=== PATIENT | male | born 1940 | race Caucasian/White ===

== ENCOUNTER 2024-02-11 05:56 | Inpatient (IN) | payer OTHER, SELFPAY ==
[2024-02-11] VITALS (15 sets, daily range): BP systolic 89–137; BP diastolic 36–75; BMI 21.1; BMI 20.6
--- NOTE | 2024-02-11 04:05 | ED.GENMED ---
History of Present Illness
General
Chief Complaint: Fever
Source: patient, ambulance crew and care home records
Exam Limitations: none
Time Seen by Provider: 02/11/24 03:58
Nursing documentation reviewed up to this point in time: agreed with
History of Present Illness
History of Present Illness:
Pleasant 83-year-old male that presents with fever, 'lethargy ', and hypertension that has been present for the last day. Patient has an indwelling Mansfield catheter. Patient has a history of UTI. History is limited due to patient's condition.
Vital signs are stable. Patient not hypoxic
Nursing note reviewed. I agree with nursing documentation up to this point in time.
Home Meds and allergies reviewed.
NUMBER AND COMPLEXITY OF PROBLEMS ADDRESSED AT THE ENCOUNTER
� Chronic conditions affecting care: CKD stage IIIa, nodular prostate with frequent UTIs, Parkinson's disease, hydronephrosis, orthostatic hypotension, type 2 diabetes, weakness
� Acute Exacerbation and/or Progression of Chronic Illness:
� Differential Diagnosis includes: Urosepsis, pyelonephritis, sepsis, septic shock
AMOUNT AND/OR COMPLEXITY OF DATA TO BE REVIEWED AND ANALYZED
I performed an independent evaluation of the following and my interpretation is:
EKG:
Pulse Ox: Not Hypoxic
Cd Reactor Operator Head: Sinus Rhythm
CT:
X-rays:
Ultrasound:
Laboratory Studies:
Other:
Review of other/old records: No previous hospital records available. Reviewed
Rehab facility records
Clinical information was obtained by an independent historian:
Prescriptions/Medications Considered but not given:
Further testing considered but not performed:
RISK OF COMPLICATIONS AND/OR MORBIDITY OR MORTALITY OF PATIENT MANAGEMENT
Social determinants of health affecting care: Good Social Support
Discussion with other providers: Discussed with hospitalist for admission to the hospital
Escalation of care including admission/observation vs risk of discharge considered: After being observed in the emergency department, patient is stable for discharge.
CRITICAL CARE NOTE:
Critical care statement: A total of 30 minutes of critical care time was provided for this patient. This time is separate from time utilized to perform the aforementioned documented procedures. Aggregate critical care time includes only time
during which I was engaged in work directly related to the patient's care, as described above, whether at the bedside or elsewhere in the Emergency Department.
Total Time (exclusive of procedures):
Update:
Review of Systems
Review of Systems
Allergies reviewed?: Yes
All Other Systems: ROS reviewed and negative except as documented in HPI and ROS
Constitutional: Reports fever and fatigue
EENT: Reports no symptoms
Respiratory: Reports no symptoms
Cardiac: Reports no symptoms
ABD/GI: Reports no symptoms
: Reports incontinence and dark urine
Musculoskeletal: Reports no symptoms
Skin: Reports no symptoms
Neurological: Reports no symptoms
Endocrine: Reports no symptoms
Hematologic/Lymphatic: Reports no symptoms
Psychiatric: Reports no symptoms
Phy Exam
General Physical Exam
General Presentation: well appearing and mild distress
General age: appears older than age
General Skin: warm and dry
General Habitus: elderly and frail
General Mental: confused
General Hydration: appears well hydrated
Gastrointestinal Exam
Gastrointestinal Exam: normal bowel sounds, non tender and soft
Neurological Exam
Neurological Exam: confused
Musculoskeletal Exam
Musculoskeletal Exam: full ROM
Skin Exam
Skin Exam: normal color and warm/dry
Psychiatric Exam
Psychiatric Exam: labile
Sepsis
Sepsis Screening
Sepsis Assessment: Severe Sepsis
Sepsis Screening: Hypotension
Sepsis Screen
Sepsis Screen: Severe Sepsis
Date: 02/11/24
Time: 05:42
Course
Orders/Labs/Results
Orders:
Orders
02/11/24 04:03
Electrocardiogram (*1) Urgent
Reason for Study: Other
Other Reason for Exam: sepsis
Cardiac Monitoring- Treatment ONCE
EKG- Treatment ONCE
0.9% Sodium Chloride 1000 ml [Nss] 1,000 ml IV NOW STA
Cefepime HCl [Maxipime] 2,000 mg IV NOW STA
02/11/24 04:23
Complete Blood Count/With Diff Urgent
Comprehensive Metabolic Panel Urgent
Lactic Acid Q4H
Comment: CANCEL 2nd LACTIC ACID IF 1st LACTIC ACID IS LESS THAN 2
PTT Urgent
Procalcitonin Urgent
PCT Algorithmm Indication: Sepsis
Prothrombin Time Urgent
Troponin I Urgent
02/11/24 04:24
Blood Culture Urgent
COOPER Source: Blood/Venous
Specimen Description:
Date Specimen was Collected: 02/11/24
Time Specimen was Collected: 04:23
02/11/24 04:32
Urinalysis Reflex To Culture Urgent
Date Specimen was Collected: 02/11/24
Time Specimen was Collected: 04:24
Urine Microscopic Reflex Cult Urgent
Urine Culture Urgent
COOPER Source: U
Specimen Description:
Date Specimen was Collected: 02/11/24
Time Specimen was Collected: 04:24
02/11/24 04:55
Admit/Transfer Patient As Directed
Co-Sign Provider:
Level of Care: Inpatient admission
Assign to:: IMU- Intermediate Care
Physician / Group: Hospitalist
Diagnosis: Sepsis
Reason for Hospitalization: Sepsis
Expected length of stay greater than two midnights?: Yes
ELOS- Estimated Length of Stay in days: 2
I certify the patient meets the requirements for IP care: Yes
PRN Pain Medication Management As Directed
May give lesser potent ordered pain med per pt: Yes
preference::
Protocol:: Medication orders for pain may be administered in a
manner that supports deferring to patient preference
when the pt is:
- Requesting an ordered lesser potent pain medication.
Least to most potent pain medications are defined
as: acetaminophen < NSAID < tramadol < opioids
(morphine, oxycodone, hydromorphone).
- Requesting a lesser dose of the same medication IF
ORDERED.
- Requesting a less intrusive route of administration
if both routes are prescribed by the provider (PO <
IV).
02/11/24 05:03
Code Status As Directed
Resuscitation Status: Full Code
02/11/24 05:15
Gentamicin Sulfate [Gentamicin] 200 mg 0.9% Sodium Chloride [Nss] 50 ml IV ONCE
Abnormal Lab Results
02/11/24 02/11/24
04:23 04:32
WBC 14.6 H 10^3/uL
(4.8-10.8)
RBC 3.81 L 10^6/uL
(4.70-6.10)
Hgb 10.7 L g/dL
(13.0-18.0)
Hct 33.5 L %
(39.0-52.0)
MCHC 31.9 L g/dL
(33.0-37.0)
Abs Immat Gran (auto) 0.2 H 10^3/uL
(0-0.05)
Absolute Neuts (auto) 12.0 H 10^3/uL
(1.4-6.5)
Absolute Monos (auto) 0.9 H 10^3/uL
(0.1-0.6)
Immature Gran % 1.1 H %
(0-0.5)
Neutrophils % 82.6 H %
(42.2-75.2)
Lymphocytes % 9.6 L %
(20.5-51.1)
BUN 34 H mg/dl
(9-20)
Creatinine 1.6 H mg/dL
(0.7-1.3)
Glucose 230 H mg/dl
(70-99)
AST 16 L U/L
(17-59)
Total Protein 5.8 L g/dl
(6.3-8.2)
Albumin 3.1 L g/dl
(3.5-5.0)
Procalcitonin 1.99 H ng/ml
(0.0-0.25)
Urine Ketones 1+ A
(Negative)
Ur Occult Blood Reflex 3+ A
(Negative)
Leukocyte Esterase Rfl 2+ A
(Negative)
Urine Glucose 1+ A
(Negative)
Urine Albumin (Reflex) 2+ A
(Neg - Trace)
02/11/24 04:23
02/11/24 04:23
Vital Signs
Initial and Last Documented VS:
Initial Vital Signs
Pulse Resp BP Pulse Ox
75 25 92/40 96
02/11/24 04:00 02/11/24 04:00 02/11/24 04:00 02/11/24 04:00
Last Documented Vital Signs
Temp Pulse Resp BP Pulse Ox
100 F 66 21 125/45 98
02/11/24 04:13 02/11/24 05:00 02/11/24 05:00 02/11/24 05:00 02/11/24 05:00
*Critical Care Note
Total Time (30-74mins, 75-104mins- exclusive of procedures): Not Applicable (Critical care statement: A total of 30 minutes of critical care time was provided for this patient. This time is separate from time utilized to perform the aforementioned
documented procedures. Aggregate critical care time includes only time during which I was engaged in work directl)
ED Attending Note
-
Portions of this chart may have been created with voice recognition software.� Occasional wrong word or��sound alike� substitutions may have occurred due to the inherent limitations of voice recognition software.
Discharge Plan
Departure
Patient Disposition: Admit
Date of Disposition: 02/11/24
Time of Disposition: 05:41
Admit to: Telemetry
Presentation/result/management discussed w/ accepting MD/DO: Hospitalist
Patient with high blood pressure during this ER visit?: Yes
Discharge Problem:
urosepsis
Instructions: Blood in the Urine (Hematuria), Adult (DC)
Referrals:
Farhan Yang DO [Family Provider] -
Interventions
Interventions:
*Risk Screen - Suicide Last Done: 02/11/24 04:37
*General Assessment Last Done: 02/11/24 04:37
*Neglect/Abuse Screening Last Done: 02/11/24 04:37
ED- Fall Risk Assessment Last Done: 02/11/24 04:37
*ED COVID-19 Vaccine History Last Done: 02/11/24 04:37
ED-Male Genitourinary Assessment Last Done: 02/11/24 04:37
ED- Neurological Assessment Last Done: 02/11/24 04:37
ED-Skin Assessment Last Done: 02/11/24 05:38
Discharge Date and Time
Print Language: LUXEMBOURG[place]
[2024-02-11] MEDS: NSS 1000 ML IV (04:26)
[2024-02-11 04:38] LABS: % Basophils 0.3 % (0-2); % Eosinophils 0.1 % (0-6); % Immature Granulocytes 1.1 % (0-0.5); % Lymphocytes 9.6 % (20.5-51.1); % Monocytes 6.3 % (1.7-9.3); % Neutrophils 82.6 % (42.2-75.2); Absolute Basophils 0.1 10^3/uL (0-0.2); Absolute Immature Granulocytes 0.2 10^3/uL (0-0.05); Absolute Lymphocytes 1.4 10^3/uL (1.2-3.4); Absolute Monocytes 0.9 10^3/uL (0.1-0.6); Hematocrit 33.5 % (39.0-52.0); Hemoglobin 10.7 g/dL (13.0-18.0); Mean Corp Hgb Conc. 31.9 g/dL (33.0-37.0); Mean Corpuscular Hgb 28.1 pg (27.0-31.0); Mean Corpuscular Volume 87.9 fL (80.0-94.0); Mean Platelet Volume 9.4 fL (7.4-10.4); Nucleated Red Blood Cells % 0 % (-); Platelet Count 324 10^3/uL (130-400); Red Blood Cell Count 3.81 10^6/uL (4.70-6.10); Red Cell Dist. Width 13.9 % (11.5-14.5); White Blood Cell Count 14.6 10^3/uL (4.8-10.8)
[2024-02-11 04:45] LABS: ALT (SGPT) < 10 U/L (0-50); AST (SGOT) 16 U/L (17-59); Albumin 3.1 g/dl (3.5-5.0); Alkaline Phosphatase 83 U/L (38-126); Blood Urea Nitrogen 34 mg/dl (9-20); Calcium 8.9 mg/dl (8.4-10.2); Carbon Dioxide 29 mmol/L (22-30); Chloride 102 mmol/L (98-107); Estimated Creatinine Clearance 31 ml/min; Glucose 230 mg/dl (70-99); Potassium 4.3 mmol/L (3.5-5.1); Sodium 141 mmol/L (135-145); Total Bilirubin 0.6 mg/dl (0.2-1.3); Total Protein 5.8 g/dl (6.3-8.2); eGFR 42.22
[2024-02-11 04:46] LABS: Lactic Acid 1.1 mmol/L (0.7-2.0)
[2024-02-11 04:48] LABS: APTT 33.2 Sec (23.4-35.0); INR 1.09; PT 13.9 Sec (11.4-14.6)
[2024-02-11] MEDS: MAXIPIME 2000 MG IV (04:49)
[2024-02-11 04:56] LABS: Urine Albumin 2+ (Neg - Trace); Urine Bilirubin Negative (Negative); Urine Character Very Cloudy (Clear); Urine Color Yellow; Urine Glucose 1+ (Negative); Urine Ketone 1+ (Negative); Urine Leukocyte 2+ (Negative); Urine Nitrite Negative (Negative); Urine Occult Blood 3+ (Negative); Urine Urobilinogen Negative (Neg - 1+)
[2024-02-11 04:59] LABS: Troponin I < 0.012 ng/ml
--- NOTE | 2024-02-11 05:18 | HPS.HSE ---
Family Physician
-
Family Physician: Farhan Yang DO
Chief Complaint
-
Fever and hypotension
History of Present Illness
This is an 83-year-old with past medical history significant for Parkinson's disease, diabetes not on insulin, orthostatic hypotension, urinary retention status post TURP, chronic indwelling urinary catheter who presents to the emergency department
from [facility] after being found to be hypotensive.
Patient arrived at [facility] on February 09. He is not minimally responsive at this time and unable to provide history. History obtained from the nursing staff at the rehab. The patient had been recently admitted to a different
hospital on January 23. He had fatigue lethargy and was found to have a complicated urinary tract infection at that time due to Mansfield. Mansfield exchanged. He was treated initially with cefepime and ultimately narrowed to cefuroxime. He also had
Ericka glabrata and received 7 days of micafungin. The report indicated that there was gram-negative rods on culture but no speciation was further provided. Patient seen by infectious disease at the outside hospital. On February 08 it was stated
that he was declining and was not stable for discharge. However he was discharged ultimately on February 09. Upon arrival at the correction being evaluated he was found to be hypotensive with a high fever. He was lethargic. Received 1 dose of
Tylenol at 2 AM. EMS gave 1 L of normal saline en route.
On arrival in the emergency department here his initial blood pressure was 92/40, temperature 100, pulse 66 and he was satting 80% on room air. He had pus coming from his indwelling urinary catheter. UA was positive with leukocyte esterase but
negative for nitrites at this time. Rest of UA is pending. He had leukocytosis to 14,000, hemoglobin 10.7 platelet 324. Will BUN was 34 and creatinine was 1.6 with prior baseline from 1.2 on admission to the outside hospital. Lactic acid was
negative. LFTs were within normal limits. He received 2 g of cefepime and dose of gentamicin in the ED
Medical History
Past Medical History
Past Medical History: Reports NIDDM and Other
Additional Past Medical History:
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
Orthostatic hypotension
Parkinson disease
CKD
Past Surgical History: Reports Urological (TURP, TURBT)
Social History
Unable to obtain full social history at this time due to: Acuity
Family History
Family History: Not pertinent
Allergies / Home Medications
Allergies reflects when Allergies were last updated in LOAG.
Home Medications with original date entered in LOAG
Allergy/Medication List:
Allergies
Allergy/AdvReac Type Severity Reaction Status Date / Time
No Known Allergies Allergy Unverified 02/11/24 04:25
Aspirin 81 mg tablet, 81mg p.o. daily
Carbidopa�levodopa 25-250 mg tablet, 1 tablet p.o. 4 times daily
Fludrocortisone sed rate oral tablet 0.1 mg, 0.1 mg p.o. daily
Januvia 100 mg tablet, 100 mg p.o. daily
Midodrine 10 mg tablet, 10 mg p.o. 3 times daily
Repaglinide 2 mg tablet, 2 mg p.o. twice daily
Simvastatin 40 mg tablet, 40 mg p.o. at bedtime
Review of Systems
-
Unable to obtain full review of systems at this time due to: Acuity
Physical Exam
Vital Signs
Vital Signs
Temp Pulse Resp BP Pulse Ox
100 F 66 21 125/45 98
02/11/24 04:13 02/11/24 05:00 02/11/24 05:00 02/11/24 05:00 02/11/24 05:00
Physical Exam
General: No Apparent Distress and Appears Chronically Ill
HEENT: NormoCephalic, Anicteric, Atraumatic, [place] Conjunctivae and Neck Nontender
Respiratory: Clear
Cardiac: S1/S2 and Regular Rhythm
Breast: Deferred by me
GI: Soft, Non Tender, Non Distended, Normal Bowel Sounds and No Hepatosplenomegaly
Rectal: Deferred by Provider
Genito-urinary: Turbid Urine and Mansfield
Musculoskeletal: No Clubbing, No Cyanosis and No Edema
Skin: Warm
Neuro: Awake (Somnolent but arousable, opens eyes to simple commands. Cannot follow simple commands at this time. Moving all extremities spontaneously. ) and DTR's Intact & Symmetrical
Hematologic/Lymphatic: No Lymphadenopathy
Laboratory Results
-
02/11/24 04:23
02/11/24 04:23
Laboratory Results
PT 13.9 Sec (11.4-14.6) 02/11/24 04:23
INR 1.09 02/11/24 04:23
APTT 33.2 Sec (23.4-35.0) 02/11/24 04:23
Lactic Acid Cancelled 02/11/24 08:15
Total Bilirubin 0.6 mg/dl (0.2-1.3) 02/11/24 04:23
AST 16 U/L (17-59) L 02/11/24 04:23
ALT < 10 U/L (0-50) 02/11/24 04:23
Alkaline Phosphatase 83 U/L (38-126) 02/11/24 04:23
Troponin I < 0.012 ng/ml 02/11/24 04:23
Data Reviewed
-
Lab Data: Labs Reviewed by me
Old Records: Reviewed
Impression/Plan
-
IMPRESSION:
83-year-old with history of chronic urinary retention status post indwelling cath, Parkinson's disease, orthostatic hypotension, CKD who presents to the emergency department from [facility] just after being discharged from a 18 day hospitalization
at [facility] for urinary tract infection where he was treated for 7 days with micafungin for urinary Ericka glabrata as well as treated with cefepime and ultimately downgraded to cefuroxime for gram-negative brenda infection. On
arrival here He was febrile, hypotensive, leukocytosis and has pyuria on UA. Saturating at 98% on room air without any evidence of increased work of breathing. Abdominal labs are within normal limits and the abdominal exam was benign. No other
infectious source evident. Patient is now on his third hospitalization for recurrent UTI and each hospitalization spending less than 2 days out of the hospital between each. He has declined significantly over the last 4 weeks.
PLAN:
1. Sepsis -complicated urinary tract infection with sepsis presumed from urinary source. Recently treated for Ericka glabrata and resistant gram-negative brenda infection of uncertain speciation. Status post 2 L with repeat blood pressure of 120
systolic. Lactic acid is negative.
- admit to imu
- continue iv fluids at 100 ml/hr, h/o orthostatic hypotension
- blood and urine cultures sent, procal pending
- continuing cefepime for now
- ID consultation
- requested medical records from [facility]
2. Urinary retention
- chronic indwelling catheter, exchanged in ED
3. DM II
- sitagliptin
- insulin sliding scale for now
4. Orthostasis
- fludrocortisone 0.1 daily, midodrine 10 tid.
5. Parkinsons
- continue sinamet 25-250 qid
6. Diet - Soft mechanical, bite size, thin liquids
DVT PPx - heparin sq q8
Code status - DNR after long discussion with family
[2024-02-11 05:32] LABS: Procalcitonin 1.99 ng/ml (0.0-0.25)
[2024-02-11] MEDS: GENTAMICIN 55 MG IV (05:40)
[2024-02-11] MEDS: LR 1000 IV ×2 (07:07→17:26)
[2024-02-11 08:06] LABS: Urine Amorphous Seen; Urine Squamous Cell 0-2 /LPF (Few)
[2024-02-11 08:07] LABS: Urine Red Blood Cell 16-20 /HPF (0-2); Urine White Cell >100 /HPF (0-5)
[2024-02-11 08:08] LABS: Urine Bacteria Few (Negative)
[2024-02-11] MEDS: ZINC OXIDE OINTMENT 1 APPLIC TOPICAL ×2 (08:57→21:48)
[2024-02-11] MEDS: JANUVIA 100 MG PO (08:59)
[2024-02-11] MEDS: FLORINEF 0.1 MG PO (08:59)
[2024-02-11] MEDS: SINEMET 25-250 1 TABLET PO ×3 (08:59→22:00)
[2024-02-11] MEDS: ProAmatine 10 MG PO (08:59)
[2024-02-11] MEDS: ASPIR LOW (ENTERIC COATED) 81 MG PO (09:00)
[2024-02-11] MEDS: HEPARIN 5000 UNITS SC ×2 (09:00→21:48)
[2024-02-11] MEDS: SENOKOT-S 1 TABLET PO ×2 (09:00→21:48)
[2024-02-11] MEDS: COLACE 100 MG PO ×2 (09:00→21:48)
[2024-02-11 10:46] LABS: Glucose - Point of Care 196 mg/dl (70-99)
--- NOTE | 2024-02-11 11:21 | CON.ID ---
Consultation
-
Date/Time Consultation Requested: 02/11/2024 0659
Date/Time Consultation Performed: 02/11/2024 1050
Requesting Provider: Dr. Hayden
Performing Provider: Dr. Minor
Reason for Consultation: Suspected complicated urinary tract infection, Fever
Chief Complaint / Past History
History of Present Illness
Jose Avalos is a 83-year-old male being evaluated in regards to suspected complicated urinary tract infection. History is obtained from chart review, and patient interview, although patient was found to be unable to provide significant
history for me.
According to reviewed records the patient arrives at [facility] early this a.m. from [facility], having recently been admitted to that facility from a [place] facility. According to reviewed notes the patient was admitted to
this [place] facility on 01/23 and ultimately was diagnosed with a urinary tract infection. Patient does have a history of chronic Mansfield catheter placement secondary to urinary retention. While at the [place] facility, it appears that he also
had funguria with Ericka glabrata, and underwent treatment with micafungin.
Earlier this morning, the patient evidently had a fever and did not appear well and EMS was called. Workup in the ER here revealed a leukocytosis, along with significant pyuria. He has been started on empiric antibiotics, and Infectious Diseases
is asked to comment upon further antimicrobial therapy.
At the present time, he denies any chest pain. He denies any shortness of breath, cough or congestion. He denies any abdominal pain, nausea or vomiting. He denies any urinary pain, or flank pain.
Past History
Additional Past Medical History:
Parkinson's
DM
CKD
Orthostatic hypotension
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
Additional Past Surgical History:
TURP
Allergy History:
No Known Allergies Allergy (Unverified 02/11/24 04:25)
Medications Reviewed: Yes
Current Antibiotics:
Cefepime 1 g IV every 12 hours
(Gentamicin received in ER)
Social History
Tobacco: Non-Smoker
Alcohol: None
Drug: None
Living: [facility]
Family History
Family History: Not Pertinent
Review of Systems
Vital Signs
Temp Pulse Resp BP Pulse Ox
100 F 55 19 126/52 97
02/11/24 04:13 02/11/24 10:30 02/11/24 10:30 02/11/24 10:00 02/11/24 10:30
Physical Exam
Physical Exam
Constitutional: No Acute Distress, Comfortable and Non-toxic
Head: Normocephalic
Eyes: No Conjunctival Hemorrhage and Sclera Anicteric
Oral: No Thrush and No Ulcers
Cardiovascular: Regular Rate and S1/S2; Negative S3/S4 or Murmur
Pulmonary: Clear; Negative Wheezes, Rales or Rhonchi
Gastrointestinal: Soft, Non Tender, Non Distended, Normal Bowel Sounds, No Rebound and No Guarding
Genito-Urinary: Mansfield and Clear Urine; Negative Turbid Urine or Hematuria
Extremities: Edema (Trace); Negative Cyanosis or Erythema
Neurological: Awake and Alert
Psychological: Calm
.
Lab / Diagnostic Study Results
02/11/24 04:23
02/11/24 04:23
Abs Immat Gran (auto) 0.2 10^3/uL (0-0.05) H 02/11/24 04:23
Absolute Neuts (auto) 12.0 10^3/uL (1.4-6.5) H 02/11/24 04:23
Absolute Lymphs (auto) 1.4 10^3/uL (1.2-3.4) 02/11/24 04:23
Absolute Monos (auto) 0.9 10^3/uL (0.1-0.6) H 02/11/24 04:23
Absolute Basos (auto) 0.1 10^3/uL (0-0.2) 02/11/24 04:23
Immature Gran % 1.1 % (0-0.5) H 02/11/24 04:23
Neutrophils % 82.6 % (42.2-75.2) H 02/11/24 04:23
Lymphocytes % 9.6 % (20.5-51.1) L 02/11/24 04:23
Monocytes % 6.3 % (1.7-9.3) 02/11/24 04:23
Eosinophils % 0.1 % (0-6) 02/11/24 04:23
Basophils % 0.3 % (0-2) 02/11/24 04:23
PT 13.9 Sec (11.4-14.6) 02/11/24 04:23
INR 1.09 02/11/24 04:23
Lactic Acid Cancelled 02/11/24 08:15
Procalcitonin 1.99 ng/ml (0.0-0.25) H 02/11/24 04:23
Ur Squamous Epith Cells 0-2 /LPF (Few) 02/11/24 04:32
Microbiology Results
Micro:
02/11/24 04:32 Urine Culture - Pending
Urine
02/11/24 04:24 Blood Culture - Pending
Blood/Venous
Assessment / Plan
Fever
Leukocytosis
Suspected complicated urinary tract infection (CAUTI)
Parkinson's
DM
CKD
Orthostatic hypotension
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
Recommendations:
Continue with empiric cefepime for the present.
Await records from outside facility (requested)
Monitor white count and temperature curve.
Follow pending urine and blood cultures.
Continue with supportive measures.
Further recommendations as additional data is returned.
[2024-02-11] MEDS: NOVOLOG FLEXPEN-LOW RESISTANCE SC (11:31)
[2024-02-11] MEDS: NOVOLOG FLEXPEN-LOW RESISTANCE 1 UNITS SC ×2 (11:32→18:32)
[2024-02-11] MEDS: ProAmatine PO ×2 (12:34→22:00)
[2024-02-11 16:19] LABS: Glucose - Point of Care 192 mg/dl (70-99)
[2024-02-11] MEDS: MAXIPIME 1000 MG IV (17:27)
[2024-02-11] MEDS: STERILE WATER FOR INJECTION 10 ML IV (17:28)
[2024-02-11 21:23] LABS: Glucose - Point of Care 184 mg/dl (70-99)
[2024-02-11] MEDS: TYLENOL 650 MG PO (21:54)
[2024-02-11] MEDS: SINEMET 25-250 PO ×2 (21:54→22:00)
[2024-02-12] MEDS: LR 1000 IV ×3 (03:32→23:49)
[2024-02-12] MEDS: MAXIPIME 1000 MG IV ×2 (04:52→17:34)
[2024-02-12] MEDS: STERILE WATER FOR INJECTION 10 ML IV ×2 (04:52→17:34)
[2024-02-12 06:02] LABS: Hematocrit 32.1 % (39.0-52.0); Hemoglobin 10.1 g/dL (13.0-18.0); Mean Corp Hgb Conc. 31.5 g/dL (33.0-37.0); Mean Corpuscular Hgb 28.8 pg (27.0-31.0); Mean Corpuscular Volume 91.5 fL (80.0-94.0); Mean Platelet Volume 9.8 fL (7.4-10.4); Platelet Count 276 10^3/uL (130-400); Red Blood Cell Count 3.51 10^6/uL (4.70-6.10); White Blood Cell Count 8.6 10^3/uL (4.8-10.8)
[2024-02-12 06:34] LABS: Blood Urea Nitrogen 29 mg/dl (9-20); Calcium 8.5 mg/dl (8.4-10.2); Carbon Dioxide 29 mmol/L (22-30); Chloride 103 mmol/L (98-107); Estimated Creatinine Clearance 34 ml/min; Glucose 184 mg/dl (70-99); Potassium 3.9 mmol/L (3.5-5.1); Sodium 141 mmol/L (135-145); eGFR 49.56
[2024-02-12 07:25] VITALS: BP 138/58
[2024-02-12 07:35] LABS: Glucose - Point of Care 179 mg/dl (70-99)
[2024-02-12] MEDS: ProAmatine 10 MG PO ×3 (08:27→17:34)
[2024-02-12] MEDS: FLORINEF 0.1 MG PO (08:28)
[2024-02-12] MEDS: SENOKOT-S 1 TABLET PO ×2 (08:28→20:34)
[2024-02-12] MEDS: COLACE 100 MG PO ×2 (08:28→20:34)
[2024-02-12] MEDS: ASPIR LOW (ENTERIC COATED) 81 MG PO (08:28)
[2024-02-12] MEDS: NOVOLOG FLEXPEN-LOW RESISTANCE 1 UNITS SC (08:29)
[2024-02-12] MEDS: TYLENOL 650 MG PO (08:31)
[2024-02-12] MEDS: HEPARIN 5000 UNITS SC ×2 (08:36→20:34)
[2024-02-12] MEDS: ZINC OXIDE OINTMENT 1 APPLIC TOPICAL ×2 (08:37→20:35)
--- NOTE | 2024-02-12 09:31 | WOUNDNOTE ---
WO RN note: Patient admitted with sepsis. Patient admitted from [facility] rehab (went to [facility] on 02/10/24 from [facility]
See H&P for complete history.
PMH: Parkinson's, NIDDM, TURP for urinary retention, Mansfield catheter, CKD.
Wound Location and type/assessment: Patient admitted with: several stage 2 sacral/buttocks pressure injuries with surrounding dull erythema. Small serous drainage. Mid back dry scabbed healing abrasion.
Appetite: good.
Pressure redistribution devices in place: [employer] Accumax. SHMUEL Alfaro agreeable to an air overlay mattress. Heels off bed with pillows.
Plan: Silicone border foam changed on sacral/buttocks. Protective heel foam dressings changed. Patient turned and air overlay mattress applied with help from PCT Mary. Heels off bed with pillow and air chair cushion. Instructed patient pressure
injury prevention measures including to take air chair cushion when discharge.
Will confirm orders with Dr. Delfina Mistry.
Care plan to be updated and will follow as needed.
Note to case management of equipment requested for discharge: Air mattress at SNF if not already in place.
Recommend follow up at wound care center upon discharge.
[2024-02-12] MEDS: SINEMET 25-250 1 TABLET PO ×4 (09:33→21:04)
[2024-02-12 10:09] VITALS: BMI 20.6
--- NOTE | 2024-02-12 12:00 | W.PN.HOSP.TC ---
Today's Communication/Plan
-
see note
Assessment / Plan
Assessment / Plan
1. Sepsis - Improved
Complicated urinary tract infection/catheter associated urine tract infection
Reported MDR UTI
-Patient was just recently treated for catheter associated urinary tract infection and finished Cipro course of 1 week and 2 weeks of antibiotic course
-Patient also was diagnosed for Ericka glabrata and required 1 week course of micafungin
-Obtain records request resent today to [facility].
-Currently on renally adjusted dose of cefepime, continue.
-Urine culture from this hospitalization growing some bacterial colonies, further identification and susceptibility pending.
-ID following and help appreciated.
2. Chronic Urinary retention
- chronic indwelling catheter, exchanged in ED
-Patient has been on Mansfield catheter for approximately 1 month, has been on catheter in the past as well
-Discussed at length with family on initial catheterization due to BPH likely, patient is post TURP and now likely have Parkinson related neurogenic bladder
3. DM II
- maintain on ISS
-Maintain on home dose of sitagliptin
4. Orthostasis
- fludrocortisone 0.1 daily, midodrine 10 tid.
5. Parkinson disease
- continue sinamet 25-250 qid
DVT PPx - heparin sq q8
Code status - DNR after long discussion with family
Total time spent : 52 mins
Care plan discussed with patient family at bedside
Anticipated Discharge: 24 - 48 hours
Subjective/Interval History
-
Date of Service: February 12, 2024
resting comfortably in bed
family at bedside
afebrile in night
BP well controlled overnight
Objective Data
-
Labs:
Laboratory Results
02/12/24
04:24
WBC 8.6
Hgb 10.1 L
Hct 32.1 L
Plt Count 276
Sodium 141
Potassium 3.9
Chloride 103
Carbon Dioxide 29
BUN 29 H
Creatinine 1.4 H
Glucose 184 H
Calcium 8.5
Vital Signs:
Vital Signs
Temp Pulse Resp BP Pulse Ox
98.5 F 56 18 138/58 98
02/12/24 07:25 02/12/24 07:25 02/12/24 07:25 02/12/24 07:25 02/12/24 07:30
I&O
02/11/24 02/12/24 02/13/24
06:59 06:59 06:59
Intake Total 1000 / 1000 1320 / 1320
Output Total 250 / 250 1950 / 1950
Balance 750 / 750 -630 / -630
Review of Systems
-
Respiratory: Reports No Symptoms
Cardiac: Reports No Symptoms
Abdomen/GI: Reports No Symptoms
Physical Exam
-
General: No Apparent Distress and Comfortable
HEENT: Negative Oxygen
Respiratory: Clear to Auscultation
Cardiac: Regular Rhythm and S1/S2; Negative Murmur or Rub
GI: Soft, Nontender, Nondistended and Normal Bowel Sounds
Genito-urinary: Mansfield
Musculoskeletal: No Edema
Neuro: Awake, Alert, Oriented, No Motor Deficits and Nonfocal/Grossly Intact
Psych: Calm
[2024-02-12 12:45] LABS: Glucose - Point of Care 247 mg/dl (70-99)
[2024-02-12] MEDS: NOVOLOG FLEXPEN-LOW RESISTANCE 3 UNITS SC ×2 (13:07→17:35)
[2024-02-12] MEDS: ProAmatine PO (14:50)
[2024-02-12 15:16] VITALS: BP 154/61
--- NOTE | 2024-02-12 15:30 | WOUNDNOTE ---
WOC RN note: Silverio Felder re: recommend an air mattress for patient if not already in place at SNF. He has several stage 2 sacral pressure injuries.
--- NOTE | 2024-02-12 16:23 | CM ---
Spoke with Rochelle Castorena she said bed was available.
Spoke with and pt in room. Reviewed SNF accepted him.They are happy.
As per wound care pt needs air mattress Info forwarded to Rochelle at [facility].
[facility]
report [phone]
fax [phone]
PLAN To [facility]
[2024-02-12 16:57] LABS: Glucose - Point of Care 224 mg/dl (70-99)
--- NOTE | 2024-02-12 17:07 | W.PN.ID1 ---
Date of Service
Date of Service: February 12, 2024
Today's Communication
Continue antibiotics. Await records from outside facility
Assessment / Plan
Fever
Leukocytosis
Suspected complicated urinary tract infection (CAUTI)
Parkinson's
DM
CKD
Orthostatic hypotension
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
Recommendations:
Continue with empiric cefepime for the present.
Await records from outside facility (requested)
Monitor white count and temperature curve.
Follow pending urine and blood cultures.
Continue with supportive measures.
Further recommendations as additional data is returned.
����������������������������������������������������������
Chief Complaint
-: Leukocytosis and UTI
Subjective / Review of Systems
Review of Systems: No Fever and No Chills
Vital Signs / Physical Exam
Vital Signs
Vital Signs
Temp Pulse Resp BP Pulse Ox
98.7 F 53 20 154/61 98
02/12/24 15:16 02/12/24 15:16 02/12/24 15:16 02/12/24 15:16 02/12/24 15:16
Physical Exam
Constitutional: No Acute Distress, Comfortable, Chronically Ill and Non-toxic
Eyes: Sclera Anicteric
Cardiovascular: Regular Rate and S1/S2; Negative S3/S4
Pulmonary: Clear; Negative Wheezes or Rales
Gastrointestinal: Soft, Non Tender and Non Distended
Genito-Urinary: Mansfield and Clear Urine; Negative Turbid Urine or Hematuria
Extremities: Negative Edema, Cyanosis or Erythema
Neurological: Awake and Alert
Psychological: Calm
Objective Data
Lab Data
Lab Results
02/12/24 04:24
02/12/24 04:24
PT 13.9 Sec (11.4-14.6) 02/11/24 04:23
INR 1.09 02/11/24 04:23
APTT 33.2 Sec (23.4-35.0) 02/11/24 04:23
Estimated Creat Clear 34 ml/min 02/12/24 04:24
Lactic Acid Cancelled 02/11/24 18:59
Total Bilirubin 0.6 mg/dl (0.2-1.3) 02/11/24 04:23
AST 16 U/L (17-59) L 02/11/24 04:23
ALT < 10 U/L (0-50) 02/11/24 04:23
Alkaline Phosphatase 83 U/L (38-126) 02/11/24 04:23
Most recent labs reviewed.
Micro Results:
02/11/24 11:44 MRSA Screen - Final
Nose No Methicillin Resistant Staphylococcus aureus isolated.
02/11/24 04:32 Urine Culture - Preliminary
Urine Sparse growth, too young to be identified. Further results
to follow.
02/11/24 04:24 Blood Culture - Preliminary
Blood/Venous No Growth in 24 hours- Final report to follow
Care Review
Plan reviewed with: Physician (Hospitalist)
[2024-02-12 21:29] LABS: Glucose - Point of Care 193 mg/dl (70-99)
[2024-02-12 23:15] VITALS: BP 152/63
[2024-02-13] MEDS: STERILE WATER FOR INJECTION 10 ML IV (04:10)
[2024-02-13] MEDS: MAXIPIME 1000 MG IV (04:10)
[2024-02-13 07:07] LABS: Glucose - Point of Care 189 mg/dl (70-99)
[2024-02-13 07:15] VITALS: BP 171/65
[2024-02-13 08:06] LABS: Hematocrit 34.4 % (39.0-52.0); Hemoglobin 10.9 g/dL (13.0-18.0); Mean Corp Hgb Conc. 31.7 g/dL (33.0-37.0); Mean Corpuscular Volume 88.4 fL (80.0-94.0); Mean Platelet Volume 9.8 fL (7.4-10.4); Platelet Count 299 10^3/uL (130-400); Red Blood Cell Count 3.89 10^6/uL (4.70-6.10); Red Cell Dist. Width 13.7 % (11.5-14.5); White Blood Cell Count 6.4 10^3/uL (4.8-10.8)
[2024-02-13 08:23] LABS: Blood Urea Nitrogen 22 mg/dl (9-20); Carbon Dioxide 32 mmol/L (22-30); Chloride 98 mmol/L (98-107); Estimated Creatinine Clearance 40 ml/min; Glucose 200 mg/dl (70-99); Potassium 4.1 mmol/L (3.5-5.1); Sodium 140 mmol/L (135-145); eGFR 59.63
[2024-02-13] MEDS: ProAmatine PO ×3 (08:41→18:09)
[2024-02-13] MEDS: HEPARIN 5000 UNITS SC ×2 (08:42→21:34)
[2024-02-13] MEDS: COLACE 100 MG PO ×2 (08:43→21:32)
[2024-02-13] MEDS: FLORINEF 0.1 MG PO (08:43)
[2024-02-13] MEDS: SENOKOT-S 1 TABLET PO ×2 (08:43→21:35)
[2024-02-13] MEDS: ASPIR LOW (ENTERIC COATED) 81 MG PO (08:43)
[2024-02-13] MEDS: SINEMET 25-250 1 TABLET PO ×4 (08:43→21:35)
[2024-02-13] MEDS: ZINC OXIDE OINTMENT 1 APPLIC TOPICAL ×2 (08:43→21:35)
[2024-02-13] MEDS: NOVOLOG FLEXPEN-LOW RESISTANCE 1 UNITS SC (08:44)
[2024-02-13] MEDS: TYLENOL 650 MG PO (09:26)
[2024-02-13] MEDS: MILK OF MAGNESIA 30 ML PO (09:26)
[2024-02-13 11:31] LABS: Glucose - Point of Care 241 mg/dl (70-99)
[2024-02-13] MEDS: NOVOLOG FLEXPEN-LOW RESISTANCE 2 UNITS SC ×2 (12:08→18:07)
--- NOTE | 2024-02-13 12:43 | PN.CDI ---
CDI
- -
CDI:
Physician Documentation Request
Admit Date: 02/11/24 05:56
Dear Doctor Fede,
Patient admitted with sepsis.
02/11 [facility] note, 'Patient admitted with: several stage 2 sacral/buttocks pressure injuries.'
Physician documentation of the type and location of wounds is required for compliant documentation. Based on the above clinical findings and your assessment, please provide the following in your progress note:
Type (etiology) of ulcer/wound:
- Pressure (decubitus) ulcer
- Other
- Unable to determine
For a pressure ulcer, please also include the stage* of the ulcer:
- Stage 1 - Skin intact, non-blanchable redness
- Stage 2 - Partial thickness loss of dermis, includes intact or open blister
- Stage 3 - Full thickness tissue not including bone, tendon or muscle
- Stage 4 - Full thickness tissue loss, including exposed bone, tendon or muscle
- Unstageable - Full thickness loss in which the base of the ulcer is covered by slough (yellow, anaya, barrios, green or brown) and/or eschar (anaya, brown or black) in the wound bed.
- Unable to determine
Use of terms such as suspected, likely, concern for, or probable (associated with a specific diagnosis that is being evaluated, monitored, or treated as if it exists) are acceptable and can be coded in the inpatient setting, when documented at the
time of discharge.
Thank you,
Anna SANFORD,RN,CCDS
CDI Specialist
Available via Valentines text
Please use your independent medical judgment in providing your response.
*Source: National Pressure Ulcer Advisory Panel (NPUAP)
[2024-02-13] MEDS: LR 1000 IV (13:28)
--- NOTE | 2024-02-13 14:05 | W.PN.HOSP.TC ---
Addendum entered and electronically signed by Mynor Mistry MD 02/13/24 16:30:
Add on to diagnosis list
several stage 2 sacral/buttocks pressure injuries
Original Note:
Today's Communication/Plan
-
Continue cefepime, SSI, PT/OT eval
Assessment / Plan
Assessment / Plan
IMPRESSION: 83 year old male with history of NIDDM, orthostatic hypotension, parkinson's, urinary retention + chronic hunt x1 month, who presents with sepsis secondary to complicated UTI.
1. Sepsis - resolved
secondary to complicated urinary tract infection/catheter associated urine tract infection. Sitagliptin likely contributory.
History of MDR UTI.
-Patient was just recently treated for catheter associated urinary tract infection and finished Cipro course of 1 week and 2 weeks of antibiotic course
-Patient also was diagnosed with Ericka glabrata and required 1 week course of micafungin
-Still awaiting records from [facility].
-Currently on renally adjusted dose of cefepime, continue.
-Urine culture from this hospitalization positive for yeast. Recently treated with micafungin. ID for recs to treat
-Blood cultures no growth
-ID following and help appreciated.
2. Chronic Urinary retention
- chronic indwelling catheter, exchanged in ED upon arrival
-Patient has been on Hunt catheter for approximately 1 month, has been on catheter in the past as well
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
- Will need outpatient urology follow up. Pt's urologist is Dr. Terrazas with [facility].
3. Non-insulin dependent diabetes mellitus
- maintain on ISS
- Continue home dose of Sitagliptin and Repaglinide
4. Orthostasis
- fludrocortisone 0.1 daily, midodrine 10 tid. Continue
- Pt was ambulatory with walker prior to recent illness/recent hospitalization. PT/OT eval
5. Parkinson disease
- continue sinamet 25-250 qid
DVT PPx - heparin sq q8
Code status - DNR after long discussion with family
Total time spent : 52 mins
Care plan discussed with patient family at bedside
Anticipated Discharge: Within 24 hours
Subjective/Interval History
-
Date of Service: February 13, 2024
Afebrile. No acute events overnight
Objective Data
-
Labs:
Laboratory Results
02/13/24
06:55
WBC 6.4
Hgb 10.9 L
Hct 34.4 L
Plt Count 299
Sodium 140
Potassium 4.1
Chloride 98
Carbon Dioxide 32 H
BUN 22 H
Creatinine 1.2
Glucose 200 H
Calcium 9.0
Vital Signs:
Vital Signs
Temp Pulse Resp BP Pulse Ox
97.7 F 55 18 145/80 97
02/13/24 07:15 02/13/24 14:01 02/13/24 07:15 02/13/24 14:01 02/13/24 09:29
I&O
02/12/24 02/13/24 02/14/24
06:59 06:59 06:59
Intake Total 1320 / 1320 360 / 360
Output Total 1949 / 1949 3350 / 3350
Balance -630 / -630 -2990 / -2990
Review of Systems
-
History Source: Patient
Constitutional: Denies Fever
Respiratory: Denies Trouble Breathing
Cardiac: Denies Chest Pain or Palpitations
Abdomen/GI: Denies Abdominal Pain, Nausea, Vomiting, Diarrhea or Constipated
Genitourinary: Denies Flank Pain
Physical Exam
-
General: No Apparent Distress and Comfortable
HEENT: Normocephalic, Atraumatic, Moist Mucous Membranes and Anicteric
Respiratory: Clear to Auscultation and Non Labored Respirations; Negative Wheezes, Rales, Rhonchi or Crackles
Cardiac: Regular Rhythm and S1/S2; Negative Murmur, Rub or Calf Tenderness
GI: Soft, Nontender, Nondistended and Normal Bowel Sounds
Genito-urinary: No Costovertebral Tender, Turbid Urine and Hunt; Negative Bloody Urine
Musculoskeletal: No Cyanosis and No Edema
Skin: Warm and Dry
Neuro: Awake and Alert
Psych: Calm
[2024-02-13 14:35] VITALS: BP 143/66; BP 155/68; BP 95/50; PULSE 70; PULSE 92; O2SAT 98
[2024-02-13 14:38] VITALS: BP 143/66; BP 155/68; BP 95/50; PULSE 70; PULSE 92; O2SAT 98
[2024-02-13 15:01] VITALS: BP 144/69
[2024-02-13 16:02] VITALS: BP 166/88; BP 89/55
--- NOTE | 2024-02-13 16:03 | PTCARENOTE ---
Patient found on floor at bottom of bed on knees with head facing bed/mattress. Patient with BP while kneeling on floor - 89/55. Assisted patient back to bed and BP 166/88. Small abrasions on bilateral knees. Cleansed with NSS and protective foam
applied. MD notified and made aware of patient found on floor and BPs.
--- NOTE | 2024-02-13 16:36 | W.PN.ID1 ---
Date of Service
Date of Service: February 13, 2024
Today's Communication
Discontinue antibiotics and observe.
Assessment / Plan
Fever
�No fevers noted since admission
Leukocytosis
� Resolved
Suspected complicated urinary tract infection (CAUTI)
� Cultures only with yeast; likely contaminant/colonizer
Parkinson's
DM
CKD
Orthostatic hypotension
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
Recommendations:
Overall patient appears clinically improved.
Cultures have revealed only the presence of yeast which was likely a colonizer given chronic Mansfield use.
Discontinue further antibiotics.
No records received from outside facility.
Monitor white count and temperature curve.
Continue with supportive measures.
����������������������������������������������������������
Chief Complaint
-: Leukocytosis and UTI
Subjective / Review of Systems
Review of Systems: No Fever and No Chills
Vital Signs / Physical Exam
Vital Signs
Vital Signs
Temp Pulse Resp BP Pulse Ox
97.5 F 72 18 144/69 97
02/13/24 15:01 02/13/24 15:01 02/13/24 15:01 02/13/24 15:01 02/13/24 15:01
Physical Exam
Constitutional: No Acute Distress, Comfortable, Chronically Ill and Non-toxic
Eyes: Sclera Anicteric
Cardiovascular: Regular Rate and S1/S2; Negative S3/S4
Pulmonary: Clear; Negative Wheezes or Rales
Gastrointestinal: Soft, Non Tender and Non Distended
Genito-Urinary: Mansfield and Clear Urine; Negative Turbid Urine or Hematuria
Extremities: Negative Edema, Cyanosis or Erythema
Neurological: Awake and Alert
Psychological: Calm
Objective Data
Lab Data
Lab Results
02/13/24 06:55
02/13/24 06:55
PT 13.9 Sec (11.4-14.6) 02/11/24 04:23
INR 1.09 02/11/24 04:23
APTT 33.2 Sec (23.4-35.0) 02/11/24 04:23
Estimated Creat Clear 40 ml/min 02/13/24 06:55
Lactic Acid Cancelled 02/11/24 18:59
Total Bilirubin 0.6 mg/dl (0.2-1.3) 02/11/24 04:23
AST 16 U/L (17-59) L 02/11/24 04:23
ALT < 10 U/L (0-50) 02/11/24 04:23
Alkaline Phosphatase 83 U/L (38-126) 02/11/24 04:23
Most recent labs reviewed.
Micro Results:
02/11/24 04:32 Urine Culture - Preliminary
Urine Yeast
02/11/24 04:24 Blood Culture - Preliminary
Blood/Venous No Growth in 48 hours- Final report to follow
02/11/24 11:44 MRSA Screen - Final
Nose No Methicillin Resistant Staphylococcus aureus isolated.
[2024-02-13 16:49] LABS: Glucose - Point of Care 205 mg/dl (70-99)
--- NOTE | 2024-02-13 16:50 | CM ---
Spoke with Rochelle Castorena she said bed was available.
As per wound care pt needs air mattress Info forwarded to [facility] at [facility].
Will need auth .
[facility]
report [phone]
fax [phone]
PLAN To [facility] after auth
[2024-02-13 21:38] LABS: Glucose - Point of Care 145 mg/dl (70-99)
[2024-02-13 23:36] VITALS: BP 115/66
[2024-02-14] MEDS: LR 1000 IV (00:04)
[2024-02-14 06:19] LABS: Hematocrit 31.7 % (39.0-52.0); Hemoglobin 10.6 g/dL (13.0-18.0); Mean Corp Hgb Conc. 33.4 g/dL (33.0-37.0); Mean Corpuscular Hgb 28.2 pg (27.0-31.0); Mean Corpuscular Volume 84.3 fL (80.0-94.0); Mean Platelet Volume 9.8 fL (7.4-10.4); Platelet Count 256 10^3/uL (130-400); Red Blood Cell Count 3.76 10^6/uL (4.70-6.10); Red Cell Dist. Width 13.4 % (11.5-14.5); White Blood Cell Count 5.9 10^3/uL (4.8-10.8)
[2024-02-14 06:48] LABS: Blood Urea Nitrogen 17 mg/dl (9-20); Calcium 9.2 mg/dl (8.4-10.2); Carbon Dioxide 27 mmol/L (22-30); Chloride 101 mmol/L (98-107); Estimated Creatinine Clearance 48 ml/min; Glucose 147 mg/dl (70-99); Potassium 3.9 mmol/L (3.5-5.1); Sodium 140 mmol/L (135-145); eGFR > 60.00
[2024-02-14 08:14] VITALS: BP 148/79
[2024-02-14 08:34] LABS: Glucose - Point of Care 154 mg/dl (70-99)
[2024-02-14 09:05] LABS: Glycohemoglobin (HgbA1c) 7.9 % (4.0-5.6)
[2024-02-14] MEDS: NOVOLOG FLEXPEN-LOW RESISTANCE 1 UNITS SC ×3 (09:21→18:25)
[2024-02-14] MEDS: FLORINEF 0.1 MG PO (09:22)
[2024-02-14] MEDS: COLACE 100 MG PO ×2 (09:22→21:12)
[2024-02-14] MEDS: JANUVIA 100 MG PO (09:22)
[2024-02-14] MEDS: ASPIR LOW (ENTERIC COATED) 81 MG PO (09:22)
[2024-02-14] MEDS: ProAmatine PO ×2 (09:22→18:26)
[2024-02-14] MEDS: HEPARIN 5000 UNITS SC ×2 (09:23→21:13)
[2024-02-14] MEDS: ZINC OXIDE OINTMENT 1 APPLIC TOPICAL ×2 (09:23→21:13)
[2024-02-14] MEDS: SINEMET 25-250 1 TABLET PO ×4 (09:23→21:13)
[2024-02-14] MEDS: SENOKOT-S 1 TABLET PO ×2 (09:23→21:12)
[2024-02-14 12:00] LABS: Glucose - Point of Care 180 mg/dl (70-99)
[2024-02-14] MEDS: ProAmatine 10 MG PO (13:20)
--- NOTE | 2024-02-14 13:36 | W.PN.HOSP.TC ---
Today's Communication/Plan
-
discharge planning for snf/rehab
Assessment / Plan
Assessment / Plan
1. Sepsis - Improved
Complicated urinary tract infection/catheter associated urine tract infection
Reported MDR UTI
-Patient was just recently treated for catheter associated urinary tract infection and finished Cipro course of 1 week and 2 weeks of antibiotic course
-Patient also was diagnosed for Ericka glabrata and required 1 week course of micafungin
-Did not receive any records from [facility].
-Urine culture growing yeast only. Possibly not a true pathogenic organism and likely associated with hunt use.
-Patient has been taken off of cefepime, continue monitoring.
2. Chronic Urinary retention
-chronic indwelling catheter, exchanged in ED
-Patient has been on Hunt catheter for approximately 1 month, has been on catheter in the past as well
-Discussed at length with family on initial catheterization due to BPH likely, patient is post TURP and now likely have Parkinson related neurogenic bladder
3. DM II
- maintain on ISS
-Maintain on home dose of sitagliptin/repaglinide.
4. Orthostatic hypotension
Supine HTN
- fludrocortisone 0.1 daily, midodrine 10 tid.
-Patient hypertensive in morning with systolic blood pressure 170s, midodrine dosing criteria changed to hold for systolic blood pressure above 120.
-Significant orthostatic hypotension, drops SBP on sitting up.
5. Parkinson disease
- continue sinemet 25-250 qid
DVT PPx - heparin sq q8
Code status - DNR after long discussion with family
Care plan discussed with patient family.
Anticipated Discharge: 24 - 48 hours
Subjective/Interval History
-
Date of Service: February 14, 2024
clinically better
patient was out of bed on the floor yesterday , no free fall, patient tried to get him self out of bed,
Objective Data
-
Labs:
Laboratory Results
02/14/24
05:31
WBC 5.9
Hgb 10.6 L
Hct 31.7 L
Plt Count 256
Sodium 140
Potassium 3.9
Chloride 101
Carbon Dioxide 27
BUN 17
Creatinine 1.0
Glucose 147 H
Calcium 9.2
Vital Signs:
Vital Signs
Temp Pulse Resp BP Pulse Ox
98.2 F 82 18 97/49 100
02/14/24 08:14 02/14/24 13:20 02/14/24 08:14 02/14/24 13:20 02/14/24 08:14
I&O
02/13/24 02/14/24 02/15/24
06:59 06:59 06:59
Intake Total 360 / 360 480 / 480
Output Total 3350 / 3350 3400 / 3400
Balance -2990 / -2990 -2920 / -2920
Review of Systems
-
Respiratory: Reports No Symptoms
Cardiac: Reports No Symptoms
Abdomen/GI: Reports No Symptoms
Physical Exam
-
General: No Apparent Distress and Comfortable
HEENT: Negative Oxygen
Respiratory: Clear to Auscultation
Cardiac: Regular Rhythm and S1/S2; Negative Murmur or Rub
GI: Soft, Nontender and Nondistended
Musculoskeletal: No Edema
Neuro: Awake, Alert, Oriented, No Motor Deficits and Nonfocal/Grossly Intact
Psych: Calm
[2024-02-14 14:14] VITALS: BP 132/58; BP 91/58; PULSE 75; PULSE 77
--- NOTE | 2024-02-14 15:06 | PTCARENOTE ---
Dr. Lauren Mistry requested for supine and sitting BPs to be assessed due to lower than normal BP at 1300 (97/49). Pt asymptomatic. Pt was sitting in bed with BP of 97/49. Reassessed BPs, supine 132/58, HR 75, Sitting Bp 91/58, HR 77. Pt remains
asymptomatic. Made Dr. Mistry aware.
--- NOTE | 2024-02-14 15:43 | CM ---
CM called [facility] to request SNF authorization for transfer to [facility] ( ) with admitting physician Dr. Estrada ( ).
I spoke to Ricki who took the initial information and will send it to the on-call reviewer to return my call.
Dx codes A41.9; T83.511A
[2024-02-14 16:01] VITALS: BP 146/70
[2024-02-14 17:03] LABS: Glucose - Point of Care 190 mg/dl (70-99)
[2024-02-14 21:30] LABS: Glucose - Point of Care 222 mg/dl (70-99)
[2024-02-14 23:49] VITALS: BP 124/59
[2024-02-15] MEDS: TYLENOL 650 MG PO ×2 (01:23→16:59)
[2024-02-15 07:00] VITALS: BP 147/68
[2024-02-15 07:33] LABS: Glucose - Point of Care 140 mg/dl (70-99)
--- NOTE | 2024-02-15 08:44 | CM ---
CM received authorization for transfer to [facility] for today. Auth#[id number] provided by Geetha for DOS 02/14-02/19/2024 with NRD 02/19/2024 to [phone].
Ambulance transport to be arranged for transfer today. Time pending.
Plan: discharge to [facility] today via BLS ambulance.
[facility] report: [phone] [phone]
[facility]
[2024-02-15] MEDS: NOVOLOG FLEXPEN-LOW RESISTANCE SC (09:36)
[2024-02-15] MEDS: SINEMET 25-250 1 TABLET PO ×4 (09:41→21:02)
[2024-02-15] MEDS: FLORINEF 0.1 MG PO (09:41)
[2024-02-15] MEDS: SENOKOT-S 1 TABLET PO ×2 (09:42→20:23)
[2024-02-15] MEDS: ASPIR LOW (ENTERIC COATED) 81 MG PO (09:42)
[2024-02-15] MEDS: HEPARIN 5000 UNITS SC ×2 (09:42→20:23)
[2024-02-15] MEDS: JANUVIA 100 MG PO (09:42)
[2024-02-15] MEDS: ZINC OXIDE OINTMENT 1 APPLIC TOPICAL ×2 (09:43→21:03)
[2024-02-15] MEDS: ProAmatine PO ×2 (09:43→17:37)
[2024-02-15] MEDS: COLACE 100 MG PO ×2 (09:44→20:26)
[2024-02-15 11:00] VITALS: BP 148/66
[2024-02-15 12:27] LABS: Glucose - Point of Care 179 mg/dl (70-99)
[2024-02-15] MEDS: ProAmatine 10 MG PO (13:04)
[2024-02-15] MEDS: NOVOLOG FLEXPEN-LOW RESISTANCE 1 UNITS SC (13:04)
--- NOTE | 2024-02-15 13:39 | W.PN.HOSP.TC ---
Today's Communication/Plan
-
d/c snf rehab
Assessment / Plan
Assessment / Plan
1. Sepsis - Ruled out
Complicated urinary tract infection/catheter associated urine tract infection - Ruled otu
Reported MDR UTI
-Patient was just recently treated for catheter associated urinary tract infection and finished Cipro course of 1 week and 2 weeks of antibiotic course
-Patient also was diagnosed for Ericka glabrata and required 1 week course of micafungin
-Did not receive any records from [facility].
-Urine culture growing yeast only. Possibly not a true pathogenic organism and likely associated with hunt use.
-Patient has been taken off of cefepime, continue monitoring.
2. Chronic Urinary retention
-chronic indwelling catheter, exchanged in ED
-Patient has been on Hunt catheter for approximately 1 month, has been on catheter in the past as well
-Discussed at length with family on initial catheterization due to BPH likely, patient is post TURP and now likely have Parkinson related neurogenic bladder
3. DM II
- maintain on ISS
-Maintain on home dose of sitagliptin/repaglinide.
4. Orthostatic hypotension
Supine HTN
- fludrocortisone 0.1 daily, midodrine 10 tid.
-Patient hypertensive in morning with systolic blood pressure 170s, midodrine dosing criteria changed to hold for systolic blood pressure above 120.
-Significant orthostatic hypotension, drops SBP on sitting up.
5. Parkinson disease
- continue sinemet 25-250 qid
DVT PPx - heparin sq q8
Code status - DNR after long discussion with family
Care plan discussed with patient family.
More than 30 minutes spent in discharge including
Final examination of the patient
Summarizing hospital stay
Instructions for continuing care to all relevant caregivers
Preparation of discharge records, prescriptions, and referral forms
Total time spent (in minutes): 38 mins
Anticipated Discharge: Today
Subjective/Interval History
-
Date of Service: February 15, 2024
Patient resting comfortably in bed
Afebrile overnight
No other reported issues
Objective Data
-
Vital Signs:
Vital Signs
Temp Pulse Resp BP Pulse Ox
97.3 F 76 18 90/49 98
02/15/24 11:00 02/15/24 13:04 02/15/24 11:00 02/15/24 13:04 02/15/24 11:01
I&O
02/14/24 02/15/24 02/16/24
06:59 06:59 06:59
Intake Total 480 / 480 180 / 180
Output Total 3400 / 3400 2049
Balance -2920 / -2920 -1870 / -1870
Review of Systems
-
Respiratory: Reports No Symptoms
Cardiac: Reports No Symptoms
Abdomen/GI: Reports No Symptoms
Physical Exam
-
General: Comfortable
HEENT: Negative Oxygen
Respiratory: Clear to Auscultation
Cardiac: Regular Rhythm and S1/S2; Negative Murmur or Rub
GI: Soft, Nontender, Nondistended and Normal Bowel Sounds
Genito-urinary: Hunt
Musculoskeletal: No Edema
Neuro: Awake, Alert, Oriented, No Motor Deficits and Nonfocal/Grossly Intact
Psych: Calm
[2024-02-15 15:00] VITALS: BP 118/57
--- NOTE | 2024-02-15 15:16 | W.DCSUMMARY ---
Discharge Summary
Discharge Data
Date of Admission: 02/11/24
Date of Discharge: 02/15/24
-
Pending Results: No
Hospital Course
Discharging Physician : Dr Mynor Mistry
Disposition : [facility] rehab
Primary care physician :
Principal Discharge diagnosis :
Ruled out catheter associated urinary tract infection
Severe orthostatic hypotension
Chronic Discharge diagnosis :
Chronic urine retention with indwelling Mansfield catheter
Type 2 diabetes mellitus
Parkinson's disease
Hospital Course :
Patient is 83-year-old male with mentioned past medical history came to ER from [facility], where patient was discharged after 2 weeks of sustained [facility] for complicated UTI from MDR organism. Patient was discharged to
[facility] rehab and rehab patient was noted to be hypotensive and there was concern of having further complications, patient was sent to [place] for further evaluation. Patient UA in ER showing pyuria and bacteriuria and there was concern
of recurrence of catheter associated urinary tract infection. Patient was started on IV antibiotics and ID was involved in care. Records were requested from [facility] although not has been received till day of discharge today. Patient
urine culture grew yeast only and this was considered to be likely related to catheter only. Patient was taken off of antibiotics and was monitored in hospital. Patient was noted to having significant severe orthostatic hypotension with underlying
Parkinson's disease. Patient is already on fludrocortisone and midodrine therapy. Patient orthostatic hypotension flares up even with patient sitting up. I have educated patient family that if patient have any other supporting signs of
fever/dysuria/change in urine consistency color patient will require repeat evaluation. Patient Hypotension episodes are not good marker of true infection. Patient is being discharged back to [facility] rehab
Important imaging findings :
None
Procedure findings :
None
Discharge Plan
-
Patient Disposition: Detention/SNF
Discharge Diagnosis/Procedures: sepsis secondary to complicated UTI
Condition: Fair
Diet: Diabetic, Carb Controlled
Activity: As tolerated
Driving Restrictions: No driving
Activity Restrictions/Additional Instructions:
Wound Care Instructions
Sacral/buttocks-clean with saline or soap and water, zinc oxide ointment to surrounding skin, silicone foam dressing, change dressing daily and prn loosened dressing.
Protective foam to heels, change q 3 days and prn loosened dressing.
Mid back abrasion-protective silicone border foam as needed, change q 3 days and prn loosened dressing.
Air mattress
Pressure redistributing chair cushion (i.e. Air chair cushion).
Elevate heels off bed with pillows.
Follow up with wound health care marketing manager or at wound care center call for an appointment.
Follow up with urologist Dr. Baugh ([place]) shortly
Referrals:
Farhan Yang DO [Family Provider] - in one week
Prescriptions:
Continued
sennosides [senna] 8.6 mg Tablet
17.2 mg PO BID
acetaminophen [Tylenol] 325 mg Tablet
650 mg PO Q6HPRN PRN (Reason: mild pain)
repaglinide 2 mg Tablet
2 mg PO BID
carbidopa-levodopa 25-250 mg Tablet
1 tab PO QID
therapeutic multivitamin Tablet
1 tab PO DAILY
aspirin 81 mg Tablet,Delayed Release (Dr/Ec)
81 mg PO DAILY
simvastatin [Zocor] 40 mg Tablet
40 mg PO QPM
magnesium hydroxide [Milk of Magnesia] 400 mg/5 mL Suspension
2,400 mg PO [id number] PRN (Reason: constipation)
bisacodyl [Dulcolax (bisacodyl)] 10 mg Suppository
10 mg AK DAILYPRN PRN (Reason: if no bm aftr mom)
Fleet Enema 19-7 gram/118 mL Enema
118 ml AK DAILYPRN PRN (Reason: if no bm aftr dulcolax)
docusate sodium [Colace] 100 mg Capsule
100 mg PO BID
fludrocortisone 0.1 mg Tablet
0.1 mg PO DAILY
midodrine 10 mg Tablet
10 mg PO TID
Januvia 100 mg Tablet
100 mg PO DAILY
Desitin Daily Defense 13 % Cream
1 applic TOPICAL BID
linagliptin 5 mg Tablet
5 mg PO DAILY
Discharge Orders:
Discharge Patient (As Directed); Ordered 02/15/24
Ordered By: Mynor Mistry
Discharge Date and Time
Print Language: TAJIK
--- NOTE | 2024-02-15 16:00 | PTCARENOTE ---
pt getting transferred to [facility] rehab. report given to SHMUEL Gamino at 1600.
[2024-02-15 17:03] LABS: Glucose - Point of Care 234 mg/dl (70-99)
[2024-02-15] MEDS: NOVOLOG FLEXPEN-LOW RESISTANCE 2 UNITS SC (17:36)
[2024-02-15 19:34] VITALS: BP 129/70
[2024-02-15 21:02] LABS: Glucose - Point of Care 220 mg/dl (70-99)
--- NOTE | 2024-02-15 22:20 | PTCARENOTE ---
Pt was send to [facility] with all his belongings. Pt aaox2 at this time.Denies pain, resting comfortably.Report was already provided to RN at [facility] at 1600 on day time. Pt IV was discontinued. Plan of care continued.VSS. No other
complaints noted at this time.
== END 2024-02-15 22:16 | DRG 312 ==
LOC: 4 EAST ACU 05:56
PROVIDERS: Student in an Organized Health Care Education/Training Program; ADMITTING PHYSICIAN Internal Medicine; ATTENDING PHYSICIAN Hospitalist; EMERGENCY PHYSICIAN Student in an Organized Health Care Education/Training Program; FAMILY PHYSICIAN Student in an Organized Health Care Education/Training Program; OTHER PHYSICIAN Internal Medicine Infectious Disease
DX: I95.1 Orthostatic hypotension (principal); N18.31 Chronic kidney disease, stage 3a; I12.9 Hypertensive chronic kidney disease with stage 1 through stage 4 chronic kidney disease, or unspecified chronic kidney disease; E11.22 Type 2 diabetes mellitus with diabetic chronic kidney disease; G20.A1 Parkinson's disease without dyskinesia, without mention of fluctuations; L89.152 Pressure ulcer of sacral region, stage 2; Z66 Do not resuscitate; R54 Age-related physical debility; R33.8 Other retention of urine; Z96.0 Presence of urogenital implants; Z79.82 Long term (current) use of aspirin; Z79.84 Long term (current) use of oral hypoglycemic drugs; Z79.899 Other long term (current) drug therapy; Z87.440 Personal history of urinary (tract) infections; Z90.79 Acquired absence of other genital organ(s)
CPT/HCPCS: 80048; 80053; 81003; 81015; 82962; 83036; 83605; 84145; 84484; 85025; 85027; 85610; 85730; 87040; 87070; 87086; 93005; 96361; 96365; 96375; 97163; 97167; 99291